=== PATIENT | female | born 2000 | race Caucasian/White ===

== ENCOUNTER 2020-01-11 09:44 | Inpatient (IN) | payer BC ==
[2020-01-04 16:13] LABS: BASOPHILS # (AUTO) 0.1 X10'3 (0-0.2); BASOPHILS % (AUTO) 0.6 % (0-1); EOSINOPHILS # (AUTO) 0.1 X10'3 (0-0.9); EOSINOPHILS % (AUTO) 1.2 % (0-6); LYMPHOCYTES # (AUTO) 1.8 X10'3 (1.1-4.8); LYMPHOCYTES % (AUTO) 20.4 % (21-51); MEAN CORPUSCULAR HEMOGLOBIN 28.8 PG (27.0-31.0); MEAN CORPUSCULAR VOLUME 87.3 FL (78-98); MEAN PLATELET VOLUME 8.9 FL (7.4-10.4); MONOCYTES # (AUTO) 0.7 X10'3 (0-0.9); MONOCYTES % (AUTO) 7.5 % (2-12); NEUTROPHILS # (AUTO) 6.1 X10'3 (1.8-7.7); NEUTROPHILS % (AUTO) 70.3 % (42-75); PRE OP HEMATOCRIT 44.8 % (35.0-45.0); PRE OP HEMOGLOBIN 14.8 g/dL (12.0-16.0); PRE OP PLATELET COUNT 270 X10'3 (140-440); RED BLOOD COUNT 5.14 X10'6 (4.20-5.60)
[2020-01-04 16:22] LABS: CLARITY,URINE SLIGHTLY CLOUDY (Clear); COLOR,URINE STRAW (Yellow); GLUCOSE, URINE NEGATIVE (Neg); KETONES,URINE NEGATIVE (Neg); LEUKOCYTE ESTERASE ,URINE TRACE (Neg); NITRITES, URINE NEGATIVE (Neg); OCCULT BLOOD,URINE LARGE (Neg); PH,URINE 5.5 (4.8-8.0); PROTEIN,URINE NEGATIVE (Neg); UA COLLECTION TYPE CLN CATCH MIDSTREAM; UROBILINOGEN,URINE 0.2 E.U/dL (0.2-1.0)
[2020-01-04 16:27] LABS: ALBUMIN 3.9 G/DL (3.4-5.0); ALBUMIN/GLOBULIN RATIO 0.9 (1.1-1.5); ALKALINE PHOSPHATASE 71 IU/L (20-180); BLOOD UREA NITROGEN 12 MG/DL (7-18); BUN/CREATININE RATIO 13.3 (6.6-38.0); CALCIUM 9.1 MG/DL (8.5-10.1); CHLORIDE 105 MMOL/L (99-107); PRE OP ALT 35 U/L (30-65); PRE OP ANION GAP 4 (8-16); PRE OP AST 18 U/L (10-37); PRE OP BILIRUB, TOTAL 0.2 MG/DL (0.0-1.0); PRE OP GLUCOSE 88 MG/DL (70-104); PRE OP POTASSIUM 4.1 MMOL/L (3.4-5.1); PRE OP SODIUM 139 MMOL/L (135-145); TOTAL CARBON DIOXIDE 29.9 MMOL/L (24-32); TOTAL PROTEIN 8.2 G/DL (6.4-8.2); eGFR 81 ML/MIN
[2020-01-04 16:30] LABS: MUCUS STRANDS MANY /LPF (Neg); SQUAMOUS EPITHELIAL CELL,UR MANY /LPF (FEW)
[2020-01-04 16:32] LABS: BACTERIA,URINE 1+ /HPF (Neg)
[2020-01-04 16:35] LABS: HCG SERUM QL NEGATIVE
[2020-01-11] VITALS (26 sets, daily range): BP systolic 101–140; BP diastolic 53–97
[~2020-01-11] VITALS: Ht 167.6 cm; Wt 117.4 kg
[~2020-01-11 09:44] MED LIST: DOCUMENT DATE & TIME OF BETA-BLOCKER PO ONE; ESCI20TA15 PO; GENTAMICIN IV ONE; HYDR-3927 PO; METO-539 PO; NORMAL SALINE IV ONE; clindamycin-Cleocin 900mg/D5W 50 ML IV ONE; famotidine 20mg tablet PO ONE; ringers solution, lacted 1,000 ML IV SCH
[2020-01-11] MEDS ORDERED: sevoflurane 250ml liquid IH ONE (14:02)
[2020-01-11] MEDS ORDERED: midazolam 2 mg/2 ml injection ONE ×2 (14:06→15:17)
[2020-01-11] MEDS ORDERED: fentaNYL/PF 50MCG/1 ML 2ML syringe ONE (14:06)
[2020-01-11] MEDS ORDERED: BUPIVAcaine/PF 2.5 mg/ml (0.25%) 30ml vial ONE (14:24)
[2020-01-11] MEDS ORDERED: propofol inj 20 ML IV ONE (14:40)
[2020-01-11] MEDS ORDERED: dexamethasone sod phosphate 4mg/ml inj. ONE (14:40)
[2020-01-11] MEDS ORDERED: ondansetron/PF 4mg/2ml inj ONE (14:40)
--- NOTE | 2020-01-11 14:49 | NUR ---
Received from OR via william, accompanied by Anesthesiologist Rachel and report given by Anesthesiolgist. No lap sites present, cas pad scant drainage. 20G right AC LR at 100cc/hr. No ash cath. VS stable and mask on to 10L.
[2020-01-11] MEDS ORDERED: ringers solution, lacted 1,000 ML IV SCH (15:08)
[2020-01-11] MEDS ORDERED: meperidine/PF 25mg/ml syringe ONE (15:08)
[2020-01-11] MEDS ORDERED: morphine 2 MG/ML inj. syringe IV PRN ×3 (15:10→17:30)
[2020-01-11] MEDS ORDERED: proCHLORperazine 10 MG/2 ml inj IV PRN (15:10)
[2020-01-11] MEDS ORDERED: meperidine/PF 25mg/ml syringe IV PRN ×3 (15:10)
[2020-01-11] MEDS ORDERED: morphine 4 MG/ML inj SYRINge IV PRN (15:10)
[2020-01-11] MEDS ORDERED: ondansetron/PF 4mg/2ml inj IV PRN ×2 (15:10→17:30)
[2020-01-11] MEDS ORDERED: morphine 4 MG/ML inj SYRINge ONE (15:11)
[2020-01-11] MEDS ORDERED: MIDAZolam 5mg/ml 2ml vial IV ONE (15:20)
--- NOTE | 2020-01-11 16:20 | NUR ---
1513 - Pt responded to some questions about pain and then began to get more and more anxious 1523 - Pt remains extremely anxious, having to be physically restrained by three RNs for her own safety, kicking and thrashing, very combative, unable to make eye contact or respond to questions, shaking violently and sats dropping to 70s and HR in 150s. Called Dr Ramos who was in another surgery and ordered 2mg versed to be given and to give the morphine. 1540 - Sats at 97% and BP stable at 130/58 but HR remains in 140s. Pt remains thrashing and has to be physically restrained to keep safe. Extremely diaphoretic and tachypneic. Anesthesia was called again and he states not to give more versed yet he will be out to assess very shortly. 1542 - Anesthesia at bedside given medications, patient slowly calming down. Dr Hinds at bedside and made aware of status. 1600 - Pt calm and resting quietly not responsive to questions all VS stable. HR coming down to high 90s. O2 mask back on. Anesthesia remains at bedside. 1615 - Pt starting to wake up twitching and moving moments of breathlessness, not responding to questions and unable to make eye contact. All VS remain stable HR 95 Sats 96% on RA and BP 103/68.
--- NOTE | 2020-01-11 16:45 | NUR ---
Pt VS remain stable and no change in responsiveness, pt still unable to make eye contact or follow commands.
[2020-01-11] MEDS ORDERED: magnesium hydroxide 30ml (MOM) UD suspension PO PRN (17:30)
[2020-01-11] MEDS ORDERED: HYDROcodone/acetaminophen 10/325mg tab PO PRN (17:30)
[2020-01-11] MEDS ORDERED: mag hydrox/Alum hydrox/simeth 30ml oral suspension PO PRN (17:30)
[2020-01-11] MEDS ORDERED: HYDROcodone/acetaminophen 5mg/325mg tablet PO PRN (17:30)
[2020-01-11] MEDS ORDERED: acetaminophen 325mg tablet PO PRN ×2 (17:30)
--- NOTE | 2020-01-11 17:30 | NUR ---
[address] and Dr Hinds by phone about patient status. I stated I did not feel comfortable letting this patient go home, still unresponsive. Both MDs state pt should be admitted. House sup was called and hospitalist was paged. [address] Multani on the phone, he asked for report on todays events and history. I offered Dr Ramos and Dr Hinds's phone numbers for him to speak with which he declined. States okay to go to PCU on tele.
--- NOTE | 2020-01-11 17:40 | NUR ---
Anesthesia at bedside to continue assessing patient.
--- NOTE | 2020-01-11 18:15 | NUR ---
Dr Multani at bedside requesting orders, assessing patient.
--- NOTE | 2020-01-11 18:45 | NUR ---
Spoke with Mother on phone to give update on patient. Discussed pt status at length and she states "this has happened twice before, once after surgery and once when we took her into the ER for an anxiety attack, she received versed and then was not normal for multiple days and only began stuttering some speech after multiple days before she could speak appropriately again." She received education on the need for following up with PCP about possible lexapro interactions with other medications per MD. She states she is thankful dtr staying overnight.
[2020-01-11 18:47] LABS: BASOPHILS % (AUTO) 0.2 % (0-1); EOSINOPHILS % (AUTO) 0.1 % (0-6); HEMATOCRIT 45.6 % (35.0-45.0); HEMOGLOBIN 15.3 g/dl (12.0-16.0); LYMPHOCYTES # (AUTO) 0.5 X10'3 (1.1-4.8); LYMPHOCYTES % (AUTO) 4.2 % (21-51); MEAN CORPUSCULAR HEMOGLOBIN 29.5 PG (27.0-31.0); MEAN CORPUSCULAR HGB CONC 33.7 g/dL (33.0-36.5); MEAN CORPUSCULAR VOLUME 87.7 FL (78-98); MEAN PLATELET VOLUME 8.9 FL (7.4-10.4); MONOCYTES # (AUTO) 0.1 X10'3 (0-0.9); MONOCYTES % (AUTO) 0.8 % (2-12); NEUTROPHILS # (AUTO) 11.8 X10'3 (1.8-7.7); NEUTROPHILS % (AUTO) 94.7 % (42-75); PLATELET COUNT 228 X10'3 (140-440); RED CELL DISTRIBUTION WIDTH 12.5 % (11.5-14.5); WHITE BLOOD COUNT 12.5 X10'3 (4.5-11.0)
[2020-01-11 18:57] LABS: ANION GAP 10 (8-16); BLOOD UREA NITROGEN 12 MG/DL (7-18); BUN/CREATININE RATIO 14.1 (6.6-38.0); CALCIUM 9.2 MG/DL (8.5-10.1); CHLORIDE 105 MMOL/L (99-107); CREATININE 0.85 MG/DL (0.40-0.90); GLUCOSE 107 MG/DL (70-104); POTASSIUM 4.2 MMOL/L (3.5-5.1); SODIUM 140 MMOL/L (135-145); TOTAL CARBON DIOXIDE 25.5 MMOL/L (24-32); eGFR 86 ML/MIN
[2020-01-11 19:02] LABS: CREATINE KINASE 96 U/L (26-192)
--- NOTE | 2020-01-11 19:09 | NUR ---
Report called to receiving nurse ADEEL Blackman. Transferred via gurney to bed provided in room on slide board. Belongings sent with patient. Special Issues communicated to receiving nurse including all prior events. BLL call light within reach, VS stable and chart at bedside. Care handed over to floor.
[2020-01-11] MEDS: dextrose 5%-1/2 normal saline 1,000 ML IV SCH (19:36)
[2020-01-12 03:00] VITALS: BP 120/84
[2020-01-12] MEDS: dextrose 5%-1/2 normal saline 1,000 ML IV SCH (03:27)
[2020-01-12 05:19] LABS: BASOPHILS % (AUTO) 0.2 % (0-1); EOSINOPHILS % (AUTO) 0 % (0-6); HEMATOCRIT 43.3 % (35.0-45.0); HEMOGLOBIN 14.4 g/dl (12.0-16.0); LYMPHOCYTES # (AUTO) 0.6 X10'3 (1.1-4.8); MEAN CORPUSCULAR HEMOGLOBIN 29.5 PG (27.0-31.0); MEAN CORPUSCULAR HGB CONC 33.2 g/dL (33.0-36.5); MEAN CORPUSCULAR VOLUME 88.8 FL (78-98); MONOCYTES # (AUTO) 0.3 X10'3 (0-0.9); MONOCYTES % (AUTO) 3.1 % (2-12); NEUTROPHILS # (AUTO) 9.7 X10'3 (1.8-7.7); NEUTROPHILS % (AUTO) 90.7 % (42-75); PLATELET COUNT 246 X10'3 (140-440); RED BLOOD COUNT 4.87 X10'6 (4.20-5.60); WHITE BLOOD COUNT 10.7 X10'3 (4.5-11.0)
[2020-01-12 05:35] LABS: ALBUMIN 3.5 G/DL (3.4-5.0); ANION GAP 7 (8-16); BLOOD UREA NITROGEN 9 MG/DL (7-18); BUN/CREATININE RATIO 10.1 (6.6-38.0); CALCIUM 9.1 MG/DL (8.5-10.1); CHLORIDE 105 MMOL/L (99-107); CREATININE 0.89 MG/DL (0.40-0.90); GLUCOSE 140 MG/DL (70-104); POTASSIUM 4.4 MMOL/L (3.5-5.1); SODIUM 139 MMOL/L (135-145); TOTAL CARBON DIOXIDE 27.2 MMOL/L (24-32); eGFR 82 ML/MIN
[2020-01-12 06:00] VITALS: BP 112/71
--- NOTE | 2020-01-12 06:13 | NUR ---
Patient in room PCU 3017. I have received report from Hiral DENIS and had the opportunity to ask questions and assume patient care.
--- NOTE | 2020-01-12 06:13 | NUR ---
Problems reprioritized. Patient report given, questions answered & plan of care reviewed with Yeison EDNIS.
--- NOTE | 2020-01-12 10:45 | NUR ---
Pt DC'd home with Mother. Tele-box removed and returned to [employer]. IV removed, canula intact. Pt alert and oriented, Vitals WNL upon DC. Pt stable per MD. DC paperwork gone over with Pt, allowed both Pt and mother to ask questions concerning DC and then answer them. No new prescriptions for Pt. Pt stated she will call her OBGYN for a follow up appt once she gets home. Pt's belongings gathered and sent with Pt. Pt's wristbands removed. Pt left with Mother in private vehicle for home.
== END 2020-01-12 10:58 | disposition home or self-care (01) | DRG 744 ==
LOC: PAS 09:44 → PCU 3S 17:27
PROVIDERS: ADMIT Internal Medicine; ATTEND Obstetrics & Gynecology Obstetrics
PROC: 0UDB8ZZ Extraction of Endometrium, Via Natural or Artificial Opening Endoscopic (ICD-10-PCS; principal; 2020-01-11 14:02)
DX: N94.10 Unspecified dyspareunia (principal); G93.40 Encephalopathy, unspecified; Z68.41 Body mass index [BMI] 40.0-44.9, adult; N93.9 Abnormal uterine and vaginal bleeding, unspecified; N93.0 Postcoital and contact bleeding; N92.1 Excessive and frequent menstruation with irregular cycle; F41.9 Anxiety disorder, unspecified; F32.9 Major depressive disorder, single episode, unspecified; E66.01 Morbid (severe) obesity due to excess calories; Z79.899 Other long term (current) drug therapy; Z03.818 Encounter for observation for suspected exposure to other biological agents ruled out
CPT/HCPCS: 36415; 80048; 80053; 81001; 82550; 82948; 84703; 85025; 86885; 86900; 86901; 87081; 93005; A4355; A4618; A6258; G0378; J1100; J1580; J2175; J2250; J2270; J2405; J2704; J3010; J3490; J7030; J7120

== ENCOUNTER 2020-02-01 00:37 | Emergency (ER) | payer BC ==
[~2020-02-01] VITALS: Ht 167.6 cm; Wt 113.6 kg
[~2020-02-01 00:37] MED LIST changes: -DOCUMENT DATE & TIME OF BETA-BLOCKER PO ONE; -GENTAMICIN IV ONE; -NORMAL SALINE IV ONE; -clindamycin-Cleocin 900mg/D5W 50 ML IV ONE; -famotidine 20mg tablet PO ONE; -ringers solution, lacted 1,000 ML IV SCH
[2020-02-01] MEDS ORDERED: morphine 4 MG/ML inj SYRINge IM PRN (01:20)
--- NOTE | 2020-02-01 01:29 | NUR ---
PT REPORTS CONCERN REGARDING SEROTONIN SYNDROME. PT REPORTS THAT SHE HAD A BAD REACTION TO THE ANESTHESIA AFTER A D&C. TALKED TO ADEN ALBARRAN ABOUT PTS CONCERN REGARDING MORPHINE. MD NOT CONCERNED THAT MORPHINE WILL HAVE SAME RESULT. PT EDUCATED ABOUT CONVERSATION WITH DOC. PT LEAVING TO CT.
[2020-02-01] MEDS ORDERED: HYDR-4353 PO (02:17)
[2020-02-01 02:28] VITALS: BP 126/91
== END 2020-02-01 02:29 | disposition home or self-care (01) ==
LOC: ER 00:37
DX: R10.2 Pelvic and perineal pain (principal); R19.7 Diarrhea, unspecified; N93.9 Abnormal uterine and vaginal bleeding, unspecified; Z88.0 Allergy status to penicillin; Z79.899 Other long term (current) drug therapy
CPT/HCPCS: 74176; 99284

== ENCOUNTER 2020-02-07 19:07 | Emergency (ER) | payer BC ==
[~2020-02-07] VITALS: Ht 167.6 cm; Wt 116.0 kg
[~2020-02-07 19:07] MED LIST changes: +HYDR-4353 PO
[2020-02-07] MEDS ORDERED: ketorolac trometh. 30mg/ml inj. IM ONE (19:30)
[2020-02-07] MEDS ORDERED: HYDROcodone/acetaminophen 10/325mg tab PO ONE (19:30)
[2020-02-07] MEDS ORDERED: ketorolac tromethamine 15mg/ml inj. IM ONE (19:30)
[2020-02-07 19:58] LABS: BASOPHILS % (AUTO) 0.4 % (0-1); EOSINOPHILS # (AUTO) 0.1 X10'3 (0-0.9); EOSINOPHILS % (AUTO) 1.1 % (0-6); HEMATOCRIT 42.1 % (35.0-45.0); HEMOGLOBIN 14.3 g/dl (12.0-16.0); LYMPHOCYTES # (AUTO) 1.5 X10'3 (1.1-4.8); MEAN CORPUSCULAR HEMOGLOBIN 29.8 PG (27.0-31.0); MEAN CORPUSCULAR VOLUME 87.8 FL (78-98); MONOCYTES # (AUTO) 0.6 X10'3 (0-0.9); MONOCYTES % (AUTO) 7.5 % (2-12); NEUTROPHILS # (AUTO) 6.2 X10'3 (1.8-7.7); PLATELET COUNT 246 X10'3 (140-440); RED BLOOD COUNT 4.79 X10'6 (4.20-5.60); RED CELL DISTRIBUTION WIDTH 12.4 % (11.5-14.5); WHITE BLOOD COUNT 8.5 X10'3 (4.5-11.0)
[2020-02-07 20:13] LABS: ALANINE AMINOTRANSFERASE 51 U/L (12-78); ALBUMIN 3.7 G/DL (3.4-5.0); ALBUMIN/GLOBULIN RATIO 0.9 (1.1-1.5); ALKALINE PHOSPHATASE 68 IU/L (20-180); ANION GAP 10 (8-16); ASPARTATE AMINO TRANSFERASE 28 U/L (10-37); BILIRUBIN,TOTAL 0.3 MG/DL (0.1-1.0); BLOOD UREA NITROGEN 15 MG/DL (7-18); BUN/CREATININE RATIO 18.3 (6.6-38.0); CALCIUM 8.8 MG/DL (8.5-10.1); CHLORIDE 104 MMOL/L (99-107); CREATININE 0.82 MG/DL (0.40-0.90); GLUCOSE 90 MG/DL (70-104); POTASSIUM 3.8 MMOL/L (3.5-5.1); SODIUM 140 MMOL/L (135-145); TOTAL CARBON DIOXIDE 25.7 MMOL/L (24-32); eGFR 90 ML/MIN
--- NOTE | 2020-02-07 20:30 | NUR ---
BREAKING PRIMARY RN. WILL MONITOR PT. PT RESTING COMFORTABLY.
[2020-02-07 20:51] LABS: CLARITY,URINE CLEAR (Clear); COLOR,URINE YELLOW (Yellow); GLUCOSE, URINE NEGATIVE (Neg); KETONES,URINE NEGATIVE (Neg); LEUKOCYTE ESTERASE ,URINE NEGATIVE (Neg); NITRITES, URINE NEGATIVE (Neg); OCCULT BLOOD,URINE LARGE (Neg); PH,URINE 5.5 (4.8-8.0); PROTEIN,URINE NEGATIVE (Neg); UROBILINOGEN,URINE 0.2 E.U/dL (0.2-1.0)
[2020-02-07 20:57] LABS: UA COLLECTION TYPE CLN CATCH MIDSTREAM
[2020-02-07 20:58] LABS: BACTERIA,URINE FEW /HPF (Neg); RBC,URINE 20-50 /HPF (0-2); SQUAMOUS EPITHELIAL CELL,UR FEW /LPF (FEW); WBC,URINE 0-4 /HPF (0-4)
[2020-02-07 21:40] VITALS: BP 135/97
== END 2020-02-07 21:41 | disposition home or self-care (01) ==
LOC: ER 19:09
DX: G89.29 Other chronic pain (principal); R10.31 Right lower quadrant pain; Z30.431 Encounter for routine checking of intrauterine contraceptive device; Z88.0 Allergy status to penicillin; Z79.899 Other long term (current) drug therapy
CPT/HCPCS: 36415; 76830; 76856; 80053; 81001; 85025; 93976; 96372; 99284; J1885

== ENCOUNTER 2020-03-21 21:28 | Emergency (ER) | payer BC ==
[~2020-03-21] VITALS: Ht 167.6 cm; Wt 111.4 kg
[~2020-03-21 21:28] MED LIST changes: -HYDR-4353 PO
[2020-03-21 21:31] VITALS: BP 134/85
[2020-03-21] MEDS ORDERED: orphenadrine citrate 60mg/2ml inj. IM ONE (22:05)
[2020-03-21] MEDS ORDERED: ketorolac tromethamine 15mg/ml inj. IM ONE (22:05)
[2020-03-21] MEDS ORDERED: METH-360 PO (22:11)
[2020-03-21] MEDS ORDERED: NAPR-56 PO (22:11)
== END 2020-03-21 22:24 | disposition home or self-care (01) ==
LOC: ER 21:29
DX: S33.5XXA Sprain of ligaments of lumbar spine, initial encounter (principal); M54.5 Low back pain; Z88.0 Allergy status to penicillin; Z79.899 Other long term (current) drug therapy; X58.XXXA Exposure to other specified factors, initial encounter; Y93.89 Activity, other specified; Y92.89 Other specified places as the place of occurrence of the external cause; Y99.8 Other external cause status
CPT/HCPCS: 96372; 99284; J1885; J2360

== ENCOUNTER 2020-08-15 19:07 | Emergency (ER) | payer BC, SELFPAY ==
[~2020-08-15] VITALS: Ht 167.6 cm; Wt 119.9 kg
[~2020-08-15 19:07] MED LIST changes: +METH-360 PO
--- NOTE | 2020-08-15 19:42 | NUR ---
PT WOULD NOT GET OFF GURNEY WHEN EMS ARRIVED IN ER, STATING SHE COULDN'T DO IT, CRYING. PT EVENTUALLY CALMED ENOUGH, WAS COOPERATIVE WITH EMS AND GOT INTO A W/C
[2020-08-15 20:21] VITALS: BP 119/93
== END 2020-08-15 20:22 | disposition home or self-care (01) ==
LOC: ER 19:07
DX: F41.0 Panic disorder [episodic paroxysmal anxiety] (principal); Z88.0 Allergy status to penicillin; Z79.899 Other long term (current) drug therapy
CPT/HCPCS: 93005; 99283

== ENCOUNTER 2020-09-12 20:26 | Emergency (ER) | payer BC ==
[~2020-09-12] VITALS: Ht 167.6 cm; Wt 122.7 kg
[2020-09-12] MEDS ORDERED: normal saline 1000ML IV soln IVB ONE (21:05)
[2020-09-12] MEDS ORDERED: iohexol 300mg/ml 100ml inj. ONE (21:18)
[2020-09-12 21:36] LABS: BASOPHILS # (AUTO) 0.1 X10'3 (0-0.2); BASOPHILS % (AUTO) 0.8 % (0-1); HEMOGLOBIN 13.3 g/dl (12.0-16.0); MEAN CORPUSCULAR HEMOGLOBIN 28.8 PG (27.0-31.0); MEAN CORPUSCULAR HGB CONC 33.6 g/dL (33.0-36.5); RED BLOOD COUNT 4.61 X10'6 (4.20-5.60)
[2020-09-12 21:38] LABS: EOSINOPHILS % (AUTO) 0.5 % (0-6); HEMATOCRIT 39.4 % (35.0-45.0); LYMPHOCYTES # (AUTO) 4.2 X10'3 (1.1-4.8); LYMPHOCYTES % (AUTO) 61.6 % (21-51); MEAN CORPUSCULAR VOLUME 85.5 FL (78-98); MONOCYTES # (AUTO) 0.7 X10'3 (0-0.9); MONOCYTES % (AUTO) 10.8 % (2-12); NEUTROPHILS # (AUTO) 1.8 X10'3 (1.8-7.7); NEUTROPHILS % (AUTO) 26.3 % (42-75); PLATELET COUNT 128 X10'3 (140-440); WHITE BLOOD COUNT 6.8 X10'3 (4.5-11.0)
[2020-09-12 21:47] LABS: ALANINE AMINOTRANSFERASE 312 U/L (12-78); ALBUMIN 3.3 G/DL (3.4-5.0); ALBUMIN/GLOBULIN RATIO 0.8 (1.1-1.5); ALKALINE PHOSPHATASE 160 IU/L (20-180); ANION GAP 10 (8-16); ASPARTATE AMINO TRANSFERASE 193 U/L (10-37); BILIRUBIN,TOTAL 0.8 MG/DL (0.1-1.0); BLOOD UREA NITROGEN 11 MG/DL (7-18); BUN/CREATININE RATIO 13.6 (6.6-38.0); CHLORIDE 104 MMOL/L (99-107); CREATININE 0.81 MG/DL (0.40-0.90); GLUCOSE 93 MG/DL (70-104); POTASSIUM 3.8 MMOL/L (3.5-5.1); SODIUM 140 MMOL/L (135-145); TOTAL CARBON DIOXIDE 26.4 MMOL/L (24-32); TOTAL PROTEIN 7.7 G/DL (6.4-8.2); eGFR 90 ML/MIN
[2020-09-12 21:50] LABS: HCG SERUM QL NEGATIVE
[2020-09-12 22:03] LABS: MONOTEST POSITIVE (Neg)
[2020-09-12] MEDS ORDERED: IBUP-1984 PO (22:25)
[2020-09-12] MEDS ORDERED: PRED20TA PO (22:25)
[2020-09-12 23:07] VITALS: BP 137/82
[2020-09-13 00:26] LABS: PLATELET ESTIMATE DECREASED; TOTAL CELLS COUNTED 100
[2020-09-13 00:38] LABS: SMUDGE CELLS 2+
== END 2020-09-12 23:08 | disposition home or self-care (01) ==
LOC: ER 20:27
DX: B27.90 Infectious mononucleosis, unspecified without complication (principal); J02.9 Acute pharyngitis, unspecified; R42 Dizziness and giddiness; R50.9 Fever, unspecified; R11.0 Nausea; R51.9 Headache, unspecified; I10 Essential (primary) hypertension; F41.9 Anxiety disorder, unspecified; Z88.0 Allergy status to penicillin; Z79.899 Other long term (current) drug therapy
CPT/HCPCS: 36415; 70491; 80053; 84703; 85007; 85025; 86308; 96360; 96361; 99285; J7030; Q9967

== ENCOUNTER 2020-11-27 19:24 | Emergency (ER) | payer BC, SELFPAY ==
[~2020-11-27] VITALS: Ht 170.2 cm; Wt 121.8 kg
[2020-11-27 20:06] LABS: BASOPHILS # (AUTO) 0.1 X10'3 (0-0.2); BASOPHILS % (AUTO) 1.1 % (0-1); EOSINOPHILS # (AUTO) 0.1 X10'3 (0-0.9); EOSINOPHILS % (AUTO) 1.1 % (0-6); HEMATOCRIT 41.1 % (35.0-45.0); LYMPHOCYTES # (AUTO) 2.1 X10'3 (1.1-4.8); LYMPHOCYTES % (AUTO) 22.6 % (21-51); MEAN CORPUSCULAR HEMOGLOBIN 29.4 PG (27.0-31.0); MEAN CORPUSCULAR HGB CONC 34.1 g/dL (33.0-36.5); MEAN PLATELET VOLUME 8.6 FL (7.4-10.4); MONOCYTES # (AUTO) 0.6 X10'3 (0-0.9); MONOCYTES % (AUTO) 6.4 % (2-12); NEUTROPHILS # (AUTO) 6.5 X10'3 (1.8-7.7); NEUTROPHILS % (AUTO) 68.8 % (42-75); PLATELET COUNT 263 X10'3 (140-440); RED BLOOD COUNT 4.78 X10'6 (4.20-5.60); RED CELL DISTRIBUTION WIDTH 12.5 % (11.5-14.5); WHITE BLOOD COUNT 9.4 X10'3 (4.5-11.0)
[2020-11-27 20:15] LABS: ALANINE AMINOTRANSFERASE 104 U/L (12-78); ALBUMIN 3.7 G/DL (3.4-5.0); ALBUMIN/GLOBULIN RATIO 0.9 (1.1-1.5); ALKALINE PHOSPHATASE 75 IU/L (20-180); ANION GAP 10 (8-16); ASPARTATE AMINO TRANSFERASE 51 U/L (10-37); BILIRUBIN,TOTAL 0.2 MG/DL (0.1-1.0); BLOOD UREA NITROGEN 15 MG/DL (7-18); BUN/CREATININE RATIO 18.3 (6.6-38.0); CALCIUM 9.2 MG/DL (8.5-10.1); CHLORIDE 102 MMOL/L (99-107); CREATININE 0.82 MG/DL (0.40-0.90); GLUCOSE 106 MG/DL (70-104); LIPASE 102 U/L (73-393); POTASSIUM 3.7 MMOL/L (3.5-5.1); SODIUM 141 MMOL/L (135-145); TOTAL CARBON DIOXIDE 29.5 MMOL/L (24-32); eGFR 89 ML/MIN
[2020-11-27 21:47] LABS: URINE HCG NEGATIVE (NEG)
[2020-11-27 21:50] LABS: COLOR,URINE YELLOW (Yellow); GLUCOSE, URINE NEGATIVE (Neg); KETONES,URINE NEGATIVE (Neg); LEUKOCYTE ESTERASE ,URINE NEGATIVE (Neg); NITRITES, URINE NEGATIVE (Neg); OCCULT BLOOD,URINE NEGATIVE (Neg); PROTEIN,URINE NEGATIVE (Neg); UROBILINOGEN,URINE 0.2 E.U/dL (0.2-1.0)
[2020-11-27 22:05] LABS: UA COLLECTION TYPE CLN CATCH MIDSTREAM
[2020-11-27 22:06] LABS: BACTERIA,URINE FEW /HPF (Neg); CLARITY,URINE SLIGHTLY CLOUDY (Clear); RBC,URINE NONE SEEN /HPF (0-2); SQUAMOUS EPITHELIAL CELL,UR FEW /LPF (FEW); WBC,URINE 0-4 /HPF (0-4)
[2020-11-27 22:07] LABS: CAL OXALATE CRYSTALS 3+ /HPF (NEGATIVE)
[2020-11-27 22:56] VITALS: BP 143/96
[2020-11-28] MEDS ORDERED: PHEN51CR24 RC (00:05)
[2020-11-28] MEDS ORDERED: POLY17PO10 PO (00:05)
== END 2020-11-28 00:18 | disposition home or self-care (01) ==
LOC: ER 19:25
DX: K60.2 Anal fissure, unspecified (principal); K64.4 Residual hemorrhoidal skin tags; R19.7 Diarrhea, unspecified; I10 Essential (primary) hypertension; F41.9 Anxiety disorder, unspecified; Z88.0 Allergy status to penicillin; Z79.899 Other long term (current) drug therapy
CPT/HCPCS: 36415; 80053; 81001; 81025; 83690; 85025; 99283

== ENCOUNTER 2021-03-18 11:46 | Emergency (ER) | payer BC ==
[~2021-03-18] VITALS: Ht 172.7 cm; Wt 113.6 kg
[~2021-03-18 11:46] MED LIST changes: +PHEN51CR24 RC
[2021-03-18 12:07] VITALS: BP 127/92
== END 2021-03-18 13:30 | disposition home or self-care (01) ==
LOC: ER 11:46
DX: F41.0 Panic disorder [episodic paroxysmal anxiety] (principal); I10 Essential (primary) hypertension; Z88.0 Allergy status to penicillin; Z79.899 Other long term (current) drug therapy
CPT/HCPCS: 99283

== ENCOUNTER 2022-10-06 10:44 | Outpatient (CLI) | payer BC ==
[2022-10-06 11:12] LABS: BASOPHILS # (AUTO) 0.1 X10'3 (0-0.2); BASOPHILS % (AUTO) 0.8 % (0-1); EOSINOPHILS % (AUTO) 0.7 % (0-6); HEMATOCRIT 43.4 % (35.0-45.0); HEMOGLOBIN 14.5 g/dl (12.0-16.0); LYMPHOCYTES # (AUTO) 1.4 X10'3 (1.1-4.8); LYMPHOCYTES % (AUTO) 21.1 % (21-51); MEAN CORPUSCULAR HEMOGLOBIN 29.7 PG (27.0-31.0); MEAN CORPUSCULAR HGB CONC 33.4 g/dL (33.0-36.5); MEAN PLATELET VOLUME 9.2 FL (7.4-10.4); MONOCYTES # (AUTO) 0.3 X10'3 (0-0.9); MONOCYTES % (AUTO) 4.1 % (2-12); NEUTROPHILS % (AUTO) 73.3 % (42-75); PLATELET COUNT 233 X10'3 (140-440); RED BLOOD COUNT 4.88 X10'6 (4.20-5.60); RED CELL DISTRIBUTION WIDTH 12.4 % (11.5-14.5); WHITE BLOOD COUNT 6.8 X10'3 (4.5-11.0)
[2022-10-06 11:13] LABS: CLARITY,URINE CLEAR (Clear); COLOR,URINE YELLOW (Yellow); GLUCOSE, URINE NEGATIVE (Neg); KETONES,URINE NEGATIVE (Neg); LEUKOCYTE ESTERASE ,URINE NEGATIVE (Neg); NITRITES, URINE NEGATIVE (Neg); OCCULT BLOOD,URINE NEGATIVE (Neg); PH,URINE 5.5 (4.8-8.0); PROTEIN,URINE NEGATIVE (Neg); UROBILINOGEN,URINE 0.2 E.U/dL (0.2-1.0)
[2022-10-06 11:16] LABS: UA COLLECTION TYPE VOIDED
[2022-10-06 11:41] LABS: ALANINE AMINOTRANSFERASE 29 U/L (12-78); ALBUMIN 3.8 G/DL (3.4-5.0); ALBUMIN/GLOBULIN RATIO 0.9 (1.1-1.5); ALKALINE PHOSPHATASE 45 IU/L (46-116); ANION GAP 7 (8-16); ASPARTATE AMINO TRANSFERASE 23 U/L (10-37); BILIRUBIN,TOTAL 0.3 MG/DL (0.1-1.0); BLOOD UREA NITROGEN 11 MG/DL (7-18); BUN/CREATININE RATIO 15.1 (6.6-38.0); CALCIUM 9.2 MG/DL (8.5-10.1); CHLORIDE 106 MMOL/L (99-107); CHOL/HDL RATIO 3.3 (0.00-4.99); CHOLESTEROL 160 MG/DL (0-200); CREATININE 0.73 MG/DL (0.40-0.90); GLUCOSE 92 MG/DL (70-104); HDL CHOLESTEROL 49 MG/DL (35-60); LDL CHOLESTEROL 90 MG/DL (50-100); POTASSIUM 4.2 MMOL/L (3.5-5.1); SODIUM 141 MMOL/L (135-145); TOTAL CARBON DIOXIDE 27.9 MMOL/L (24-32); TOTAL PROTEIN 7.9 G/DL (6.4-8.2); TRIGLYCERIDES 95 MG/DL (20-135); eGFR > 90 ML/MIN
== END 2022-10-06 23:59 | disposition home or self-care (01) ==
LOC: LAB 10:44
PROVIDERS: ATTEND Nurse Practitioner Family
DX: Z00.01 Encounter for general adult medical examination with abnormal findings (principal); E03.8 Other specified hypothyroidism; L98.9 Disorder of the skin and subcutaneous tissue, unspecified
CPT/HCPCS: 36415; 80053; 80061; 81003; 84439; 84443; 85025

== ENCOUNTER 2023-01-18 10:53 | Outpatient (CLI) | payer BC ==
[2023-01-18 11:42] LABS: CLARITY,URINE CLEAR (Clear); COLOR,URINE YELLOW (Yellow); GLUCOSE, URINE NEGATIVE (Neg); KETONES,URINE NEGATIVE (Neg); LEUKOCYTE ESTERASE ,URINE NEGATIVE (Neg); NITRITES, URINE NEGATIVE (Neg); OCCULT BLOOD,URINE NEGATIVE (Neg); PH,URINE 6.5 (4.8-8.0); PROTEIN,URINE NEGATIVE (Neg)
[2023-01-18 11:46] LABS: BASOPHILS % (AUTO) 0.3 % (0-1); EOSINOPHILS # (AUTO) 0.1 X10'3 (0-0.9); EOSINOPHILS % (AUTO) 0.9 % (0-6); HEMATOCRIT 41.1 % (35.0-45.0); HEMOGLOBIN 13.6 g/dl (12.0-16.0); LYMPHOCYTES # (AUTO) 1.6 X10'3 (1.1-4.8); LYMPHOCYTES % (AUTO) 22.5 % (21-51); MEAN CORPUSCULAR HEMOGLOBIN 29.8 PG (27.0-31.0); MEAN CORPUSCULAR HGB CONC 32.9 g/dL (33.0-36.5); MEAN CORPUSCULAR VOLUME 90.3 FL (78-98); MEAN PLATELET VOLUME 8.8 FL (7.4-10.4); MONOCYTES # (AUTO) 0.4 X10'3 (0-0.9); MONOCYTES % (AUTO) 5.2 % (2-12); NEUTROPHILS # (AUTO) 4.9 X10'3 (1.8-7.7); NEUTROPHILS % (AUTO) 71.1 % (42-75); PLATELET COUNT 232 X10'3 (140-440); RED BLOOD COUNT 4.56 X10'6 (4.20-5.60); RED CELL DISTRIBUTION WIDTH 12.4 % (11.5-14.5); WHITE BLOOD COUNT 6.9 X10'3 (4.5-11.0)
[2023-01-18 11:49] LABS: UA COLLECTION TYPE CLN CATCH MIDSTREAM
[2023-01-18 12:05] LABS: ALANINE AMINOTRANSFERASE 20 U/L (12-78); ALBUMIN 3.5 G/DL (3.4-5.0); ALKALINE PHOSPHATASE 46 IU/L (46-116); ANION GAP 11 (8-16); ASPARTATE AMINO TRANSFERASE 9 U/L (10-37); BILIRUBIN,TOTAL 0.3 MG/DL (0.1-1.0); BLOOD UREA NITROGEN 14 MG/DL (7-18); BUN/CREATININE RATIO 17.3 (10.0-20.0); CALCIUM 8.6 MG/DL (8.5-10.1); CHLORIDE 104 MMOL/L (99-107); CHOL/HDL RATIO 3.3 (0.00-4.99); CHOLESTEROL 166 MG/DL (0-200); CREATININE 0.81 MG/DL (0.40-0.90); GLUCOSE 85 MG/DL (70-104); HDL CHOLESTEROL 51 MG/DL (35-60); LDL CHOLESTEROL 87 MG/DL (50-100); POTASSIUM 4.2 MMOL/L (3.5-5.1); SODIUM 143 MMOL/L (135-145); TOTAL PROTEIN 7.1 G/DL (6.4-8.2); TRIGLYCERIDES 139 MG/DL (20-135); eGFR 88 ML/MIN
== END 2023-01-18 23:59 | disposition home or self-care (01) ==
LOC: LAB 10:53
PROVIDERS: ATTEND Nurse Practitioner Family
DX: Z00.01 Encounter for general adult medical examination with abnormal findings (principal); L98.9 Disorder of the skin and subcutaneous tissue, unspecified; E03.8 Other specified hypothyroidism
CPT/HCPCS: 36415; 80053; 80061; 81003; 84439; 84443; 85025

== ENCOUNTER 2023-02-16 19:05 | Emergency (ER) | payer BC ==
[~2023-02-16] VITALS: Ht 170.2 cm; Wt 88.6 kg
[2023-02-16 20:09] VITALS: TEMP 98.5
[2023-02-16 20:44] LABS: BASOPHILS % (AUTO) 0.4 % (0-1); EOSINOPHILS # (AUTO) 0.1 X10'3 (0-0.9); EOSINOPHILS % (AUTO) 0.7 % (0-6); HEMOGLOBIN 14.2 g/dl (12.0-16.0); LYMPHOCYTES % (AUTO) 19.9 % (21-51); MEAN CORPUSCULAR HEMOGLOBIN 30.3 PG (27.0-31.0); MEAN CORPUSCULAR HGB CONC 33.9 g/dL (33.0-36.5); MEAN CORPUSCULAR VOLUME 89.4 FL (78-98); MEAN PLATELET VOLUME 8.8 FL (7.4-10.4); MONOCYTES # (AUTO) 0.7 X10'3 (0-0.9); MONOCYTES % (AUTO) 7.5 % (2-12); NEUTROPHILS # (AUTO) 7.1 X10'3 (1.8-7.7); NEUTROPHILS % (AUTO) 71.5 % (42-75); PLATELET COUNT 253 X10'3 (140-440)
[2023-02-16 20:54] LABS: ALANINE AMINOTRANSFERASE 19 U/L (12-78); ALBUMIN 3.5 G/DL (3.4-5.0); ALBUMIN/GLOBULIN RATIO 0.9 (1.1-1.5); ALKALINE PHOSPHATASE 50 IU/L (46-116); ANION GAP 11 (8-16); ASPARTATE AMINO TRANSFERASE 13 U/L (10-37); BILIRUBIN,TOTAL 0.2 MG/DL (0.1-1.0); BLOOD UREA NITROGEN 14 MG/DL (7-18); BUN/CREATININE RATIO 16.7 (10.0-20.0); CALCIUM 8.9 MG/DL (8.5-10.1); CHLORIDE 102 MMOL/L (99-107); CREATININE 0.84 MG/DL (0.40-0.90); GLUCOSE 95 MG/DL (70-104); POTASSIUM 3.7 MMOL/L (3.5-5.1); SODIUM 141 MMOL/L (135-145); TOTAL CARBON DIOXIDE 27.7 MMOL/L (24-32); TOTAL PROTEIN 7.5 G/DL (6.4-8.2); eGFR 85 ML/MIN
[2023-02-16 20:58] VITALS: BP 126/86; PULSE 95; RESP 16; O2SAT 99
--- NOTE | 2023-02-16 21:20 | NUR ---
family at bedside.
[2023-02-16 22:05] LABS: URINE HCG NEGATIVE (NEG)
[2023-02-16 22:07] LABS: COLOR,URINE YELLOW (Yellow); GLUCOSE, URINE NEGATIVE (Neg); KETONES,URINE TRACE mg/dl (Neg); LEUKOCYTE ESTERASE ,URINE NEGATIVE (Neg); NITRITES, URINE NEGATIVE (Neg); OCCULT BLOOD,URINE NEGATIVE (Neg); PROTEIN,URINE NEGATIVE (Neg); UROBILINOGEN,URINE 0.2 E.U/dL (0.2-1.0)
[2023-02-16 22:10] LABS: UA COLLECTION TYPE CLN CATCH MIDSTREAM
[2023-02-16 22:14] LABS: BACTERIA,URINE FEW /HPF (Neg); CLARITY,URINE SLIGHTLY CLOUDY (Clear); RBC,URINE 0-2 /HPF (0-2); SQUAMOUS EPITHELIAL CELL,UR FEW /LPF (FEW)
== END 2023-02-16 22:54 | disposition home or self-care (01) ==
LOC: ER 19:05
DX: F41.0 Panic disorder [episodic paroxysmal anxiety] (principal); F41.9 Anxiety disorder, unspecified; I10 Essential (primary) hypertension; Z88.0 Allergy status to penicillin; Z88.8 Allergy status to other drugs, medicaments and biological substances; Z79.899 Other long term (current) drug therapy
CPT/HCPCS: 36415; 80053; 81001; 81025; 82948; 85025; 87088; 93005; 99284; J7030

== ENCOUNTER 2023-03-02 11:44 | Emergency (ER) | payer BC ==
[~2023-03-02] VITALS: Ht 160 cm; Wt 84.1 kg
[2023-03-02 12:07] VITALS: TEMP 98.5
[2023-03-02 12:27] VITALS: BP 123/79; PULSE 83; RESP 18; O2SAT 97
[2023-03-02] MEDS ORDERED: hyDROXYzine 50 mg/ml injection ***IM only IM ONE (12:35)
[2023-03-02] MEDS ORDERED: hydrOXYzine 25 MG tablet PO ONE (13:05)
== END 2023-03-02 13:15 | disposition home or self-care (01) ==
LOC: ER 11:44
DX: F41.0 Panic disorder [episodic paroxysmal anxiety] (principal); I10 Essential (primary) hypertension; Z88.0 Allergy status to penicillin; Z88.8 Allergy status to other drugs, medicaments and biological substances; Z79.899 Other long term (current) drug therapy
CPT/HCPCS: 99283

== ENCOUNTER 2023-05-05 08:27 | Outpatient (CLI) | payer BC | END 2023-05-05 23:59 | disposition home or self-care (01) | LOC: RAD 08:27 | PROVIDERS: ATTEND Nurse Practitioner Family | DX: F41.0 Panic disorder [episodic paroxysmal anxiety] (principal); R56.9 Unspecified convulsions; R51.9 Headache, unspecified | CPT/HCPCS: 70553; A9575 ==

== ENCOUNTER 2023-05-06 09:40 | Outpatient (CLI) | payer BC ==
[~2023-05-06 09:40] MED LIST changes: +GADOTERATE MEGLUMINE 7.5 MMOL/15 ML VIAL IV ONE
== END 2023-05-06 23:59 | disposition home or self-care (01) ==
LOC: RAD 09:40
PROVIDERS: ATTEND Nurse Practitioner Family
DX: R94.01 Abnormal electroencephalogram [EEG] (principal); R56.9 Unspecified convulsions
CPT/HCPCS: 95819; A9575

== ENCOUNTER 2023-05-13 11:34 | Outpatient (CLI) | payer BC ==
[~2023-05-13 11:34] MED LIST changes: -GADOTERATE MEGLUMINE 7.5 MMOL/15 ML VIAL IV ONE
[2023-05-13 13:59] LABS: ALANINE AMINOTRANSFERASE 21 U/L (12-78); ALBUMIN 3.8 G/DL (3.4-5.0); ALBUMIN/GLOBULIN RATIO 0.9 (1.1-1.5); ALKALINE PHOSPHATASE 43 IU/L (46-116); ANION GAP 6 (8-16); ASPARTATE AMINO TRANSFERASE 22 U/L (10-37); BILIRUBIN,TOTAL 0.6 MG/DL (0.1-1.0); BLOOD UREA NITROGEN 13 MG/DL (7-18); BUN/CREATININE RATIO 17.8 (10.0-20.0); CALCIUM 9.4 MG/DL (8.5-10.1); CHLORIDE 103 MMOL/L (99-107); CHOL/HDL RATIO 3.2 (0.00-4.99); CHOLESTEROL 205 MG/DL (0-200); CREATININE 0.73 MG/DL (0.40-0.90); FREE T4 (FREE THYROXINE) 1.13 NG/DL (0.73-1.40); GLUCOSE 86 MG/DL (70-104); HDL CHOLESTEROL 65 MG/DL (35-60); LDL CHOLESTEROL 120 MG/DL (50-100); POTASSIUM 3.7 MMOL/L (3.5-5.1); SODIUM 138 MMOL/L (135-145); THYROID STIMULATING HORMONE 1.35 ulU/ml (0.34-4.50); TOTAL CARBON DIOXIDE 29.3 MMOL/L (24-32); TOTAL PROTEIN 8.1 G/DL (6.4-8.2); TRIGLYCERIDES 119 MG/DL (20-135); eGFR > 90 ML/MIN
[2023-05-13 14:05] LABS: BASOPHILS % (AUTO) 0.6 % (0-1); EOSINOPHILS % (AUTO) 0.6 % (0-6); HEMATOCRIT 43.2 % (35.0-45.0); HEMOGLOBIN 14.3 g/dl (12.0-16.0); LYMPHOCYTES # (AUTO) 1.5 X10'3 (1.1-4.8); LYMPHOCYTES % (AUTO) 20.5 % (21-51); MEAN CORPUSCULAR HEMOGLOBIN 29.9 PG (27.0-31.0); MEAN CORPUSCULAR HGB CONC 33.2 g/dL (33.0-36.5); MEAN CORPUSCULAR VOLUME 90.1 FL (78-98); MEAN PLATELET VOLUME 9.5 FL (7.4-10.4); MONOCYTES # (AUTO) 0.4 X10'3 (0-0.9); MONOCYTES % (AUTO) 5.2 % (2-12); NEUTROPHILS # (AUTO) 5.2 X10'3 (1.8-7.7); NEUTROPHILS % (AUTO) 73.1 % (42-75); PLATELET COUNT 242 X10'3 (140-440); RED BLOOD COUNT 4.79 X10'6 (4.20-5.60); WHITE BLOOD COUNT 7.2 X10'3 (4.5-11.0)
[2023-05-14 08:19] LABS: FSH, SERUM 7.2 mIU/mL (.); LUTEINIZING HORMONE 15.4 mIU/mL (.); TESTOSTERONE, SERUM 58 ng/dL (13-71)
== END 2023-05-13 23:59 | disposition home or self-care (01) ==
LOC: LAB 11:34
PROVIDERS: ATTEND Specialist
DX: E28.2 Polycystic ovarian syndrome (principal)
CPT/HCPCS: 36415; 80053; 80061; 83001; 83002; 84402; 84403; 84439; 84443; 85025

== ENCOUNTER 2023-06-07 11:13 | Outpatient (CLI) | payer BC | END 2023-06-07 23:59 | disposition home or self-care (01) | LOC: CARD DIAG 11:13 | PROVIDERS: ATTEND Internal Medicine Interventional Cardiology | DX: I08.0 Rheumatic disorders of both mitral and aortic valves (principal); I47.9 Paroxysmal tachycardia, unspecified; E66.3 Overweight | CPT/HCPCS: 93306 ==